=== PATIENT | male | born 1990 | race Caucasian/White ===

== ENCOUNTER 2023-11-17 00:39 | Emergency (ER) | payer OTHER ==
[~2023-11-17] VITALS: Ht 180.3 cm; Wt 100.0 kg
[2023-11-17 00:42] VITALS: O2SAT 97
[2023-11-17] MEDS: MORPHINE SULFATE 4 MG/ML CPJ (NOT FOR IM USE) IV ONE (01:30)
[2023-11-17] MEDS: ONDANSETRON HCL 4MG/2ML INJ IV ONE (01:30)
[2023-11-17] MEDS: PROPOFOL 200MG/20ML VIAL IV ONE (01:37)
[2023-11-17] MEDS ORDERED: IBUP-2029 MT (03:27)
[2023-11-17 03:45] VITALS: BP 122/72; PULSE 98; RESP 19; TEMP 98.6
== END 2023-11-17 03:53 | disposition home or self-care (01) ==
LOC: ER 00:39
DX: S43.005A Unspecified dislocation of left shoulder joint, initial encounter (principal); X58.XXXA Exposure to other specified factors, initial encounter; Y93.89 Activity, other specified; Y92.89 Other specified places as the place of occurrence of the external cause; Y99.8 Other external cause status
CPT/HCPCS: 73030; 23650; 96374; 96375; 99152; 99285; J2405; J2704; J2270; Z7610 ×2